=== PATIENT | male | born 1970 | race Caucasian/White ===

== ENCOUNTER 2017-02-13 09:46 | Inpatient (IN) | payer OTHER ==
[~2017-02-13] VITALS: Ht 188 cm; Wt 110.2 kg
[2017-02-13] MEDS ORDERED: NONE PER PT (10:25)
[2017-02-16] MEDS ORDERED: VANCOMYCIN PMX 1GM/200ML 200 ML IV STA (07:55)
[2017-02-16] MEDS ORDERED: LIDOCAINE 1%, 2ML ONE (07:56)
[2017-02-16] MEDS ORDERED: LACTATED RINGERS 1,000 ML IV SCH (07:57)
[2017-02-16 07:58] VITALS: BP 130/90
[2017-02-16] MEDS ORDERED: ONDANSETRON 2MG/ML, 2ML IVPush PRN (08:30)
[2017-02-16] MEDS ORDERED: LABETALOL 5MG/ML, 20ML IV PRN (08:30)
[2017-02-16] MEDS ORDERED: hydrALAzine 20 MG/ML, 1ML IV PRN (08:30)
[2017-02-16] MEDS ORDERED: PROMETHAZINE 25 MG/ML, 1ML IV PRN (08:30)
[2017-02-16] MEDS ORDERED: ALBUTEROL SULFATE 2.5 MG/3 ML NPPB PRN (08:30)
[2017-02-16] MEDS ORDERED: HYDROmorphone 1 MG/ML, 1ML IV PRN (08:30)
[2017-02-16] MEDS ORDERED: ACETAMINOPHEN 325 MG TABLET PO PRN (08:30)
[2017-02-16] MEDS ORDERED: LIDOCAINE 1%, 2ML SQ PRN (08:30)
[2017-02-16] MEDS ORDERED: METOPROLOL 1 MG/ML, 5ML IV PRN (08:30)
[2017-02-16] MEDS ORDERED: MEPERIDINE/PF 25MG/0.5ML IVPush PRN (08:30)
[2017-02-16] MEDS ORDERED: EPHEDRINE 50 MG/ML, 1ML IVPush PRN (08:30)
[2017-02-16] MEDS ORDERED: OXYcodone 5 MG/5 ML ORAL.SOL UDC PO PRN (08:30)
[2017-02-16] MEDS ORDERED: MIDAZOLAM 1 MG/ML, 2ML ONE (08:34)
[2017-02-16] MEDS ORDERED: FENTANYL PF 250 MCG/5ML ONE (08:34)
[2017-02-16] MEDS ORDERED: ROCURONIUM 10 MG/ML ONE ×2 (09:15)
[2017-02-16] MEDS ORDERED: CEFAZOLIN 1,000 MG ONE ×2 (09:15)
[2017-02-16] MEDS ORDERED: DEXAMETHASONE 4 MG/ML, 1ML ONE ×2 (09:15)
[2017-02-16] MEDS ORDERED: PROPOFOL 10 MG/ML, 20ML ONE (09:15)
[2017-02-16] MEDS ORDERED: GLYCOPYRROLATE 0.2MG/1ML, 5ML ONE ×2 (09:15)
[2017-02-16] MEDS ORDERED: NEOSTIGMINE 1 MG/ML, 10ML ONE ×2 (09:15)
[2017-02-16] MEDS ORDERED: ONDANSETRON 2MG/ML, 2ML ONE ×2 (09:15)
[2017-02-16] MEDS ORDERED: TRANEXAMIC ACID 100 MG/ML, 10ML ONE (09:19)
[2017-02-16] MEDS ORDERED: ACETAMINOPHEN 650 MG/20.3 ML UDC PO PRN (09:30)
[2017-02-16] MEDS ORDERED: ONDANSETRON 4 MG TABLET PO PRN (09:30)
[2017-02-16] MEDS ORDERED: BISACODYL 10 MG SUPP PR PRN (09:30)
[2017-02-16] MEDS ORDERED: DIPHENHYDRAMINE 25 MG CAPSULE PO PRN (09:30)
[2017-02-16] MEDS ORDERED: morphine SULFATE 10 MG/ML, 1ML IV PRN (09:30)
[2017-02-16] MEDS ORDERED: SENNA/DOCUSATE TABLET PO PRN (09:30)
[2017-02-16] MEDS ORDERED: MAGNESIUM HYDROXIDE 8%, 30ML UDC PO PRN (09:30)
[2017-02-16] MEDS ORDERED: ZOLPIDEM 5MG TABLET PO PRN (09:30)
[2017-02-16] MEDS: HYDROcodone/APAP 10/325 MG TABLET PO SCH ×4 (11:00→23:05)
[2017-02-16] MEDS ORDERED: ACETAMINOPHEN 650 MG/20.3 ML UDC ONE (12:29)
[2017-02-16] MEDS ORDERED: ACETAMINOPHEN 325 MG TABLET ONE (12:29)
[2017-02-16] MEDS ORDERED: OXYcodone 5 MG/5 ML ORAL.SOL UDC ONE (12:29)
[2017-02-16] MEDS ORDERED: FENTANYL PF 100 MCG/2ML ONE (12:29)
[2017-02-16] MEDS: FENTANYL PF 100 MCG/2ML IV PRN ×2 (12:30→12:45)
[2017-02-16] MEDS: D5%-0.45% NACL 1,000 ML IV SCH ×2 (14:02→14:09)
[2017-02-16] MEDS: CEFAZOLIN PMX 2GM/50ML 50 ML IVPB SCH (17:46)
[2017-02-16] MEDS: DOCUSATE 100 MG CAPSULE PO SCH (20:40)
[2017-02-16 23:11] VITALS: BP 109/67
[2017-02-17] MEDS: CEFAZOLIN PMX 2GM/50ML 50 ML IVPB SCH (01:23)
[2017-02-17] MEDS: D5%-0.45% NACL 1,000 ML IV SCH ×2 (02:56→13:02)
[2017-02-17] MEDS: HYDROcodone/APAP 10/325 MG TABLET PO SCH ×2 (02:59→06:28)
[2017-02-17 03:04] VITALS: BP 117/69
[2017-02-17] MEDS: DOCUSATE 100 MG CAPSULE PO SCH (08:21)
[2017-02-17 08:38] VITALS: BP 123/78
[2017-02-17] MEDS ORDERED: KETOROLAC 30 MG/1 ML IV SCH (09:30)
[2017-02-17] MEDS ORDERED: OXYcodone IR 5MG TABLET PO ONE (13:00)
[2017-02-17] MEDS ORDERED: HYDROcodone/APAP 10/325 MG TABLET PO PRN (13:30)
[2017-02-17 14:12] VITALS: BP 115/75
[2017-02-17] MEDS ORDERED: ASPIRIN 325 MG TABLET EC PO SCH (18:00)
== END 2017-02-17 15:35 | disposition home or self-care (01) | DRG 467 ==
LOC: UNDOADMIN 09:46 → ORIP 09:46 → 4NOR 02-16 13:38
PROVIDERS: ADMIT Orthopaedic Surgery; ATTEND Orthopaedic Surgery
PROC: 0SPW0JZ Removal of Synthetic Substitute from Left Knee Joint, Tibial Surface, Open Approach (ICD-10-PCS; 2017-02-16)
PROC: 0SRD0J9 Replacement of Left Knee Joint with Synthetic Substitute, Cemented, Open Approach (ICD-10-PCS; principal; 2017-02-16 09:30)
DX: M17.12 Unilateral primary osteoarthritis, left knee (principal); T84.093A Other mechanical complication of internal left knee prosthesis, initial encounter; M96.89 Other intraoperative and postprocedural complications and disorders of the musculoskeletal system
CPT/HCPCS: 81003; 87081; C1713; J0690; J1100; J1885; J2250; J2405; J2704; J2710; J3010; J3370; J3490; Q0162; C1776; J2270; J7120; Q0163